=== PATIENT | female | born 1930 | race Caucasian/White ===

== ENCOUNTER 2016-12-14 12:37 | Emergency (ER) | payer MEDICARE, BC ==
[2016-12-14] MEDS ORDERED: ALBUTEROL SULFATE/IPRATROPIUM 3 ML NEBU IH ONE ×2 (15:45→16:25)
[2016-12-14 16:13] LABS: Hematocrit 37.8 % (37.0-47.0); Mean Cell Volume 90.4 fl (78-100); Mean Corpuscular Hemoglobin 28.7 pg (27-31); Mean Corpuscular Hgb Conc 31.7 g/dl (32-36); Neutrophil # 4.4 K/mm3 (1.3-6.0); Neutrophil % 72.2 % (42-75.0); Platelet Count 303 K/mm3 (150-450); Red Blood Count 4.18 M/mm3 (4.2-5.4); Red Cell Distribution Width 13.6 % (11.5-14.0); White Blood Count 6.1 K/mm3 (4.0-10.5)
[2016-12-14 16:41] LABS: Albumin * 3.2 gm/dl (3.4-5.0); Anion Gap 12.4 mmol/L (6.8-13.8); BUN/Creatinine Ratio 25.7 (9.0-21.6); Bilirubin, Total 0.3 mg/dL (0.0-1.1); Ca. Corrected For Albumin 10.1 mg/dL (8.4-10.2); Calcium * 9.8 mg/dL (7.9-10.9); Carbon Dioxide 30.7 mmol/L (24-32.6); Potassium 4.1 mmol/L (3.4-4.6); Total Protein 7.4 gm/dL (6.2-8.2)
[2016-12-14] MEDS ORDERED: METHYLPREDNISOLONE SOD SUCC/PF 40 MG/ML VIAL IM ONE (17:33)
--- NOTE | 2016-12-14 17:42 | ERNOTE ---
Medical Problem HPI - Narrative Date of Service: 12/14/16 - General Chief Complaint: Foreign Body Time Seen by Provider: 12/14/16 15:29 Source: patient Exam Limitations: no limitations - Immun/Allergies/Home Medications Immunizations: IMMUNIZATION HX History of Influenza Vaccine More Information Required Hx Pneumococcal Vaccination More Information Required Allergies/Adverse Reactions: Allergies lisinopril Allergy (Severe, Verified 12/14/16 12:52) throat swelling tramadol Allergy (Severe, Verified 12/14/16 12:52) throat swelling hydrochlorothiazide Allergy (Verified 12/14/16 12:52) Home Medications: HOME MEDICATIONS Alendronate Sodium 35 mg PO TH 11/08/12 [Last Taken 07/24/14] Atenolol [Tenormin] 25 mg PO DAILY 11/08/12 [Last Taken 08/24/15 07:00 25mg] Mirtazapine [Remeron] 15 mg PO HS 11/08/12 [Last Taken 08/23/15 19:00 7.5mg] DULoxetine HCL [Cymbalta] 60 mg PO DAILY #0 07/27/14 [Last Taken 08/24/15 07: 00 60mg] Aspirin [Aspirin Enteric Coated] 325 mg PO DAILY 11/17/16 [Last Taken Unknown] Fluticasone/Salmeterol [Advair 500-50 Diskus] 1 puff IH BID 11/17/16 [Last Taken Unknown] Loratadine [Claritin] 10 mg PO DAILY 11/17/16 [Last Taken Unknown] Losartan Potassium [Cozaar] 50 mg PO DAILY 11/17/16 [Last Taken Unknown] amLODIPine BESYLATE [Norvasc] 2.5 mg PO DAILY 11/17/16 [Last Taken Unknown] amLODIPine BESYLATE [Norvasc] 5 mg PO DAILY 11/17/16 [Last Taken Unknown] busPIRone HCL [Buspar] 5 mg PO BID 11/17/16 [Last Taken Unknown] traZODone HCL [Desyrel] 12.5 mg PO HS PRN 11/17/16 [Last Taken Unknown] Acetaminophen [Tylenol] 650 mg PO QID PRN #1 tablet 12/14/16 [Last Taken Unknown ] Albuterol Sulfate/Ipratropium [Duoneb 2.5-0.5MG/3ML Soln] 3 ml IH QID #1 nebu [Last Taken Unknown] Cefuroxime Axetil [Ceftin] 500 mg PO BID #30 tab 12/14/16 [Last Taken Unknown] Prednisone [Deltasone] 1.5 tab PO BID #42 tablet 12/14/16 [Last Taken Unknown] - History of Present History Narrative: For about a week, hasn't felt well. Aching all over. More of a cough, more SOB. No fever. Cough non productive. Didn't actually choke at lunch today. About three weeks ago was treated for lung infection. Also, tends to feel depressed when her lungs get worse, and she is having that problem now, as well. Timing: getting worse Severity: mild, moderate Modifying Factors - (Improves): Present: other - nothing Modifying Factors - (Worsens): Present: movement Review of Systems - Review of Systems Constitutional: Present: malaise EYE: Present: no symptoms reported ENT: Present: no symptoms reported Respiratory: Present: shortness of breath, cough Cardiology: Present: no symptoms reported Gastrointestinal/Abdominal: Present: no symptoms reported Genitourinary: Present: no symptoms reported Musculoskeletal: Present: muscle pain Neurological: Present: weakness Endocrine: Present: no symptoms reported Hematologic/Lymphatic: Present: no symptoms reported Psych: Present: no symptoms reported All Other Systems: All systems neg except as marked - Patient's Past Medical History Patient History - Medical: Anemia, Anxiety, Depression, Osteoporosis Patient History - Cardiac/Respiratory: Atrial Fibrillation, COPD, Home O2 Use Patient History - Cancer: No Hx of Cancer Patient History - Surgical Procedures: Appendectomy, Hysterectomy, T & A - Social History Living Situations: home Smoking Status: Former smoker Have you smoked in the past 12 months: No Do you dip or chew tobacco: No Alcohol Use: none Drug Use: none Physical Exam - Physical Exam Narrative: O2 dependent COPD General Appearance: Present: wd/wn, alert, no apparent distress Eye Exam: Normal inspection: bilateral, PERRL: bilateral, EOMI: bilateral Ears, Nose, Throat: Present: normal ENT inspection, hearing grossly normal Neck: Present: normal inspection Respiratory: Present: no respiratory distress, rhonchi, wheezing Cardiovascular/Chest: Present: regular rate, rhythm, no murmur Gastrointestinal/Abdominal: Present: normal bowel sounds, nontender, nondistended, soft, no organomegaly Back Exam: Present: normal inspection Extremity Exam: Present: normal inspection, no edema Neurological Exam: Present: alert, oriented, other - tends to be anxious Skin Exam: Present: normal color, warm/dry ED Progress - Results and Orders Patient's Lab Results:: I have reviewed the patient's lab results. - Vital Signs Patient's Vital Signs:: I have reviewed the patient's vital signs. Vital Signs: Vital Signs 12/14/16 12:49 Temperature 36.6 C Pulse Rate 82 Respiratory 14 Rate Blood Pressure 139/65 O2 Sat by Pulse 95 Oximetry - X-Ray X-Ray #1 X-Ray: chest Interpretation: Interp. by me - non acute. - Progress/Reassessment Chief Complaint: Foreign Body Departure - Departure Clinical Impression: COPD with exacerbation Disposition: Home self-care Condition: Good Instructions: Chronic Obstructive Pulmonary Disease Exacerbation, [id number] Additional Instructions: Follow up with your doctor sometime next week. Prescriptions: Acetaminophen [Tylenol] 650 mg PO QID PRN #1 tablet PRN Reason: Pain Albuterol Sulfate/Ipratropium [Duoneb 2.5-0.5MG/3ML Soln] 3 ml IH QID #1 nebu Cefuroxime Axetil [Ceftin] 500 mg PO BID #30 tab Prednisone [Deltasone] 1.5 tab PO BID #42 tablet
[2016-12-14] MEDS ORDERED: METHYLPREDNISOLONE SOD SUCC/PF 40 MG/ML VIAL ONE (17:47)
[2016-12-14 18:32] VITALS: BP 112/81
== END 2016-12-14 18:53 | disposition home or self-care (01) ==
LOC: ER 12:37
DX: J44.1 Chronic obstructive pulmonary disease with (acute) exacerbation (principal); Z87.891 Personal history of nicotine dependence; Z90.710 Acquired absence of both cervix and uterus

== ENCOUNTER 2017-01-01 18:14 | Observation (INO) | payer MEDICARE, BC ==
[2017-01-01 18:53] LABS: Hematocrit 34.5 % (37.0-47.0); Hemoglobin 10.6 gm/dL (12.5-16.0); Mean Cell Volume 92.5 fl (78-100); Mean Corpuscular Hemoglobin 28.4 pg (27-31); Mean Corpuscular Hgb Conc 30.7 g/dl (32-36); Mean Platelet Volume 9.8 fl (6.0-9.5); Neutrophil # 6.6 K/mm3 (1.3-6.0); Neutrophil % 80.4 % (42-75.0); Platelet Count 248 K/mm3 (150-450); Red Blood Count 3.73 M/mm3 (4.2-5.4); Red Cell Distribution Width 14.3 % (11.5-14.0); White Blood Count 8.2 K/mm3 (4.0-10.5)
[2017-01-01 19:24] LABS: Albumin * 2.7 gm/dl (3.4-5.0); Anion Gap 7.8 mmol/L (6.8-13.8); BUN/Creatinine Ratio 37.4 (9.0-21.6); Bilirubin, Total 0.3 mg/dL (0.0-1.1); Ca. Corrected For Albumin 9.4 mg/dL (8.4-10.2); Calcium * 8.7 mg/dL (7.9-10.9); Carbon Dioxide 35.5 mmol/L (24-32.6); Potassium 4.3 mmol/L (3.4-4.6); Total Protein 5.8 gm/dL (6.2-8.2)
[2017-01-01 19:26] LABS: Troponin I 0.018 ng/ml (0.00-0.10)
--- NOTE | 2017-01-01 20:25 | ERNOTE ---
Dyspnea - Date Date of Service: 01/01/17 - General Presenting Symptoms: shortness of breath Time Seen by Provider: 01/01/17 18:57 Source: patient Exam Limitations: clinical condition - Immun/Allergies/Home Medications Immunizations: IMMUNIZATION HX Immunizations Up to Date Yes History of Influenza Vaccine More Information Required Hx Pneumococcal Vaccination More Information Required Allergies/Adverse Reactions: Allergies lisinopril Allergy (Severe, Verified 01/01/17 18:27) throat swelling tramadol Allergy (Severe, Verified 01/01/17 18:27) throat swelling hydrochlorothiazide Allergy (Verified 12/14/16 12:52) Home Medications: HOME MEDICATIONS Alendronate Sodium 35 mg PO TH 11/08/12 [Last Taken 07/24/14] Atenolol [Tenormin] 25 mg PO DAILY 11/08/12 [Last Taken 08/24/15 07:00 25mg] Mirtazapine [Remeron] 15 mg PO HS 11/08/12 [Last Taken 08/23/15 19:00 7.5mg] DULoxetine HCL [Cymbalta] 60 mg PO DAILY #0 07/27/14 [Last Taken 08/24/15 07: 00 60mg] Aspirin [Aspirin Enteric Coated] 325 mg PO DAILY 11/17/16 [Last Taken Unknown] Fluticasone/Salmeterol [Advair 500-50 Diskus] 1 puff IH BID 11/17/16 [Last Taken Unknown] Loratadine [Claritin] 10 mg PO DAILY 11/17/16 [Last Taken Unknown] Losartan Potassium [Cozaar] 50 mg PO DAILY 11/17/16 [Last Taken Unknown] amLODIPine BESYLATE [Norvasc] 2.5 mg PO DAILY 11/17/16 [Last Taken Unknown] amLODIPine BESYLATE [Norvasc] 5 mg PO DAILY 11/17/16 [Last Taken Unknown] busPIRone HCL [Buspar] 5 mg PO BID 11/17/16 [Last Taken Unknown] traZODone HCL [Desyrel] 12.5 mg PO HS PRN 11/17/16 [Last Taken Unknown] Acetaminophen [Tylenol] 650 mg PO QID PRN #1 tablet 12/14/16 [Last Taken Unknown ] Albuterol Sulfate/Ipratropium [Duoneb 2.5-0.5MG/3ML Soln] 3 ml IH QID #1 nebu [Last Taken Unknown] Cefuroxime Axetil [Ceftin] 500 mg PO BID #30 tab 12/14/16 [Last Taken Unknown] Prednisone [Deltasone] 1.5 tab PO BID #42 tablet 12/14/16 [Last Taken Unknown] - History of Present Illness Narrative: Patient brought in by EMS for SOB. It is very difficult to get any history from her. She states she feels better. Family is here and I spoke with POA via phone. It is reported she was told she needed to be in hospice. She however is not yet in Hospice and there is some confusion regarding this. She denies any chest pain right now. She states she has SOB but it is better. History is difficult to obtain. Patient is DNP and has an ipost. 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 Denies: fever/chills Prior Treatment: Reports: recently seen Review of Systems - Narrative Narrative: Difficult to obtain d/t patient condition - Review of Systems All Other Systems: All systems neg except as marked - Patient's Past Medical History Patient History - Medical: Anemia, Anxiety, Depression, Osteoporosis Patient History - Cardiac/Respiratory: COPD Patient History - Cancer: No Hx of Cancer Patient History - Surgical Procedures: Appendectomy, Hysterectomy, T & A Patient History - Other: None - Social History Living Situations: home Abuse History: No History of abuse Psych History: Hx of Anxiety, Hx of Depression Alcohol Use: none Drug Use: none - Immunizations Immunizations Up to Date: Yes Hx Pneumococcal Vaccination: More Information Required to Determine History of Influenza Vaccine: More Information Required to Determine Physical Exam - Physical Exam General Appearance: Present: alert, other - Very mild tachypnea Eye Exam: Normal inspection: bilateral Ears, Nose, Throat: Present: normal ENT inspection Neck: Present: normal inspection Respiratory: Present: other - scattered wheezes throughtout. No active retractions. Mild tachypnea Cardiovascular/Chest: Present: regular rate, rhythm Gastrointestinal/Abdominal: Present: normal bowel sounds, nontender Extremity Exam: Present: other - no calf tendernesss Neurological Exam: Present: other - generalized weakness makes this exam difficult Skin Exam: Absent: cyanosis ED Progress - Results and Orders Patient's Lab Results:: I have reviewed the patient's lab results. - Vital Signs Patient's Vital Signs:: I have reviewed the patient's vital signs. Vital Signs: Vital Signs 01/01/17 01/01/17 01/01/17 18:16 19:10 19:23 Temperature 36.8 C 36.8 C Pulse Rate 84 84 78 Respiratory 24 H 18 Rate Blood Pressure 181/82 147/112 O2 Sat by Pulse 95 93 Oximetry - EKG EKG read: Interp. by me EKG Comments: NSR, rate 80. No STEMI. Non-specific ST/T wave changes. - Progress/Reassessment Chief Complaint: Dyspnea Progress Note-Subjective: 01/01/17 20:24 patient seen in ED by hospitalist and will be admitted. Departure Clinical Impression: SOB (shortness of breath), Generalized weakness, COPD (chronic obstructive pulmonary disease) - Departure Disposition: [facility] Referrals: Harsh Perry MD [Primary Care Provider] -
[2017-01-01] MEDS ORDERED: CODEINE PHOSPHATE/GUAIFENESIN 5 ML UDC PO PRN (20:45)
[2017-01-01] MEDS ORDERED: MORPHINE SULFATE 4 MG/ML SYRG IV PRN (20:45)
[2017-01-01] MEDS ORDERED: ATROPINE SULFATE 150 DROP BTL SL PRN (20:45)
[2017-01-01] MEDS ORDERED: ALBUTEROL SULFATE/IPRATROPIUM 3 ML NEBU IH PRN (20:45)
[2017-01-01] MEDS ORDERED: LORazepam 2 MG/ML DISP.SYRIN IV PRN (20:45)
[2017-01-01] MEDS ORDERED: ONDANSETRON HCL/PF 2 MG/ML VIAL IV PRN (20:45)
--- NOTE | 2017-01-01 20:56 | HP ---
Chief Complaint - Chief Complaint Date of Service: 01/01/17 Time of Service: 20:55 Chief Complaint: "SOB". Source of HPI- Pt; reliable, ER provider report, History of Present Illness: Ms. Mcnally is a 86-yr-old WF pt of Dr. Perry who is a [facility] resident at the [facility]. She has known severe end stage COPD, is O2 dependent and has deteriorated further despite treatment with COPD maintenance medications and nebulizer treatments. According to [place] records, it appears that referral had been made for patient to transition to hospice care/facility at the [facility] on 12/26/16. However, the admission was declined on 12/29/16 with a reason stating that end-stage COPD was not enough to meet the admitting criteria to Hospice facility. More documentation was needed in order qualify the pt to be admitted at the Hospice facility, but the [facility] have not received the required paperwork from the PCP. Tonight, the patient got extremely SOB and no intervention at the [facility] could help the pt overcome her dyspnea. So she was sent to the [facility] ER via the ambulance. During evaluation at the ER, she remained SOB. During physical examination, she is noted to have one word dyspnea. ERP spoke to pt's daughter Kimberlee who is POA about goals of care and she was under the impresion the her mother would be transfering to hospice facility, however, the plans had not been finalized. The patient could not be transfered back to the [facility] nor [facility] due to extreme dyspnea & without official hospice care arrangements. I spoke to daughter via the phone about the treatment plan with the pt due to yaakov's respiratory distress event. Her wishes were for the patient to be kept comfortable with medications to alleviate increased respiratory effort and anxiety. So will admit pt for comfort care measures and coordinate efforts to transfer pt to hospice tomorrow. - Patient's Past Medical History Patient History - Medical: Anemia, Anxiety, Depression, Osteoporosis Patient History - Cardiac/Respiratory: COPD Patient History - Cancer: No Hx of Cancer Patient History - Surgical Procedures: Appendectomy, Hysterectomy, T & A Patient History - Other: None - Family History Father Family History - Medical: , Other - Athritis, Dementia Mother Family History - Medical: Family History - Cardiac/Respiratory: CVA/Stroke Family History - Cancer: Cervical - Social History Living Situations: home Abuse History: No History of abuse Psych History: Hx of Anxiety, Hx of Depression Alcohol Use: none Drug Use: none - Immunizations Immunizations Up to Date: Yes Hx Pneumococcal Vaccination: Yes History of Influenza Vaccine: Yes Review Of Systems (GEN) - Review of Systems Additional Comments: ROS unobtainable due to pt's AMS. Immunizations: IMMUNIZATION HX Immunizations Up to Date Yes History of Influenza Vaccine More Information Required Hx Pneumococcal Vaccination More Information Required Allergies/Adverse Reactions: Allergies Allergy/AdvReac Type Severity Reaction Status Date / Time lisinopril Allergy Severe throat Verified 01/01/17 18:27 swelling tramadol Allergy Severe throat Verified 01/01/17 18:27 swelling hydrochlorothiazide Allergy Verified 12/14/16 12:52 prednisone Allergy Verified 01/01/17 23:10 Home Medications: HOME MEDICATIONS Alendronate Sodium 35 mg PO TH 11/08/12 [Last Taken 07/24/14] Atenolol [Tenormin] 25 mg PO DAILY 11/08/12 [Last Taken 08/24/15 07:00 25mg] Mirtazapine [Remeron] 15 mg PO HS 11/08/12 [Last Taken 08/23/15 19:00 7.5mg] DULoxetine HCL [Cymbalta] 60 mg PO DAILY #0 07/27/14 [Last Taken 08/24/15 07: 00 60mg] Aspirin [Aspirin Enteric Coated] 325 mg PO DAILY 11/17/16 [Last Taken Unknown] Fluticasone/Salmeterol [Advair 500-50 Diskus] 1 puff IH BID 11/17/16 [Last Taken Unknown] Loratadine [Claritin] 10 mg PO DAILY 11/17/16 [Last Taken Unknown] Losartan Potassium [Cozaar] 50 mg PO DAILY 11/17/16 [Last Taken Unknown] amLODIPine BESYLATE [Norvasc] 2.5 mg PO DAILY 11/17/16 [Last Taken Unknown] amLODIPine BESYLATE [Norvasc] 5 mg PO DAILY 11/17/16 [Last Taken Unknown] busPIRone HCL [Buspar] 5 mg PO BID 11/17/16 [Last Taken Unknown] traZODone HCL [Desyrel] 12.5 mg PO HS PRN 11/17/16 [Last Taken Unknown] Acetaminophen [Tylenol] 650 mg PO QID PRN #1 tablet 12/14/16 [Last Taken Unknown ] Albuterol Sulfate/Ipratropium [Duoneb 2.5-0.5MG/3ML Soln] 3 ml IH QID #1 nebu [Last Taken Unknown] Cefuroxime Axetil [Ceftin] 500 mg PO BID #30 tab 12/14/16 [Last Taken Unknown] Prednisone [Deltasone] 1.5 tab PO BID #42 tablet 12/14/16 [Last Taken Unknown] Exam - Exam Vital Signs: Vital Signs - Last Taken Temp 36.8 C 01/01/17 19:23 Pulse 78 01/01/17 19:23 Resp 18 01/01/17 19:23 BP 147/112 01/01/17 19:23 Pulse Ox 93 01/01/17 19:23 Constitutional: Present: Alert, Moderate distress, Other - Very anxious, fidgety., Elderly ENT Exam: Present: hard of hearing. Absent: nasal congestion, nasal drainage Eye Exam: bilateral eye: normal inspection, PERRL Neck: Present: full range of motion, supple, normal inspection Back Exam: Present: normal inspection Respiratory: Present: accessory muscle use, wheezing, expiration (prolonged), other - One word dyspnea. Cardiovascular/Chest: Present: regular rate, rhythm, no edema, no murmur Abdomen: Present: Normal bowel sounds, soft, nontender /Rectal: Present: Exam deferred Extremity: Present: normal range of motion, non-tender, normal inspection Skin Exam: Present: warm/dry, no cyanosis Lymphatic: Present: no adenopathy Neurologic: Present: alert, oriented x 3 Appearance: Present: impaired insight, impaired recent memory, impaired remote memory Eye contact: Present: cooperative, good eye contact, other Thoughts: Present: no apparent hallucination Diagnostic Studies: Laboratory Results WBC 8.2 K/mm3 (4.0-10.5) 01/01/17 18:40 RBC 3.73 M/mm3 (4.2-5.4) L 01/01/17 18:40 Hgb 10.6 gm/dL (12.5-16.0) L 01/01/17 18:40 Hct 34.5 % (37.0-47.0) L 01/01/17 18:40 MCV 92.5 fl (78-100) 01/01/17 18:40 MCH 28.4 pg (27-31) 01/01/17 18:40 MCHC 30.7 g/dl (32-36) L 01/01/17 18:40 RDW 14.3 % (11.5-14.0) H 01/01/17 18:40 Plt Count 248 K/mm3 (150-450) 01/01/17 18:40 MPV 9.8 fl (6.0-9.5) H 01/01/17 18:40 Immature Gran % (Auto) 0.20 % (0.001-0.429) 01/01/17 18:40 Immature Gran # (Auto) 0.02 K/mm3 (0.000-0.0310) 01/01/17 18:40 Neutrophils % 80.4 % (42-75.0) H 01/01/17 18:40 Lymphocytes % 11.3 % (20-51) L 01/01/17 18:40 Monocytes % 7.5 % (0.0-9) 01/01/17 18:40 Eosinophils % 0.2 % (0.0-3.0) 01/01/17 18:40 Basophils % 0.4 % (0.0-1.0) 01/01/17 18:40 Nucleated RBC % 0.0 k/mm3 (0-1) 01/01/17 18:40 Neutrophils # 6.6 K/mm3 (1.3-6.0) H 01/01/17 18:40 Lymphocytes # 0.9 k/mm3 (1.5-3.5) L 01/01/17 18:40 Monocytes # 0.6 k/mm3 (0.0-1.0) 01/01/17 18:40 Eosinophils # 0.0 k/mm3 (0.0-0.7) 01/01/17 18:40 Absolute Basophils 0.0 k/mm3 (0.0-0.1) 01/01/17 18:40 Sodium 146 mmol/L (132-142) H 01/01/17 18:40 Plasma Sodium 146 mmol/L (130-142) H 01/01/17 18:40 Potassium 4.3 mmol/L (3.4-4.6) 01/01/17 18:40 Chloride 107 mmol/L (97-106) H 01/01/17 18:40 Carbon Dioxide 35.5 mmol/L (24-32.6) H 01/01/17 18:40 Anion Gap 7.8 mmol/L (6.8-13.8) 01/01/17 18:40 BUN 34 mg/dL (3-23) H 01/01/17 18:40 Creatinine 0.91 mg/dL (0.4-1.4) 01/01/17 18:40 Est GFR (Non-Af Amer) 62 mL/min (60-130) 01/01/17 18:40 BUN/Creatinine Ratio 37.4 (9.0-21.6) H 01/01/17 18:40 Random Glucose 107 mg/dL (70-110) 01/01/17 18:40 Lactic Acid, Venous 0.7 mmol/L (0.4-2.0) 01/01/17 18:40 Calcium 8.7 mg/dL (7.9-10.9) 01/01/17 18:40 Calcium Adj for Albumin 9.4 mg/dL (8.4-10.2) 01/01/17 18:40 Total Bilirubin 0.3 mg/dL (0.0-1.1) 01/01/17 18:40 AST 18 U/L (0-48) 01/01/17 18:40 ALT 21 U/L (19-67) 01/01/17 18:40 Alkaline Phosphatase 85 U/L (50-170) 01/01/17 18:40 Troponin I 0.018 ng/ml (0.00-0.10) 01/01/17 18:40 B-Natriuretic Peptide 1876 pg/mL (5-550) H 01/01/17 18:40 Total Protein 5.8 gm/dL (6.2-8.2) L 01/01/17 18:40 Albumin 2.7 gm/dl (3.4-5.0) L 01/01/17 18:40 Assessment/Plan - Assessment/Plan (1) Comfort measures only status Assessment: As stated in the HPI, will admit pt and initiate comfort cares measures as in agreement with the next of kin & DEUCE Mohan. Will have PCP finalize the required documentation in order to transition care to a hospice facility. Problem: Acute (2) End stage COPD Assessment: Utilize prn medications to alleviate respiratory distress and Anxiety. Problem: Acute
[2017-01-02] MEDS ORDERED: MORPHINE SULFATE 2 MG/ML DISP.SYRIN IV PRN (06:37)
[2017-01-02] MEDS ORDERED: ONDANSETRON 4 MG TAB.RAPDIS PO PRN (09:15)
[2017-01-02] MEDS: MORPHINE SULFATE 10 MG/0.5 ML SYRINGE PO SCH ×4 (10:06→16:04)
[2017-01-02] MEDS: LORazepam 1 MG TABLET PO SCH ×3 (10:06→16:05)
[2017-01-02 10:18] VITALS: BP 179/79
--- NOTE | 2017-01-02 16:02 | DS ---
(1) End stage COPD Diagnosis(s): on 2-3L O2 Problem: Chronic (2) Comfort measures only status Diagnosis(s): d/mony - Hospice. Problem: Acute (3) Atrial fibrillation Problem: Chronic (4) Hypertension Problem: Acute Description of Stay: DATE OF ADMISSION: 01/01/2017. DATE OF DISCHARGE: 01/02/2017. HOSPITAL COURSE: Patient is a 86-year-old WF with a history of end-stage COPD on 2 L of O2, BMI 17.5, HTN, anxiety/depression who had difficulty in breathing in spite of being on maximal therapy for COPD. She was admitted for shortness of breath with the intent of going into hospice the next day. Family had a meeting with hospice and all the medications were discontinued. Patient was discharged on morphine, lorazepam and atropine as needed. Procedures Performed: none Discharge Disposition: [place] self care - [facility]- [facility] Disposition: Home self-care Condition: Poor Discharge Diet: Other - food as tolerated. Referrals: Harsh Perry MD [Primary Care Provider] - Additional Patient Instructions (free text): [facility] [place] [facility]. Prescriptions (Any new or edited meds): Atropine Sulfate [Atropine 1% Ophthalmic Solution] 1 drop SL QID PRN #15 ml PRN Reason: Secretions Lorazepam 2 mg PO Q4H #50 ml Morphine Sulfate [Morphine Sulfate Conc. Oral Solution] 20 mg PO Q4H #30 ml Complete Home Medications List: Complete Home Medication List: Albuterol Sulfate/Ipratropium [Duoneb 2.5-0.5MG/3ML Soln] 3 ml IH QID #1 nebu Atropine Sulfate [Atropine 1% Ophthalmic Solution] 1 drop SL QID PRN #15 ml 09/08 Lorazepam 2 mg PO Q4H #50 ml 01/02/17 Morphine Sulfate [Morphine Sulfate Conc. Oral Solution] 20 mg PO Q4H #30 ml 09/08
== END 2017-01-02 17:35 | disposition hospice, home (50) ==
LOC: ER 18:14 → MS 20:21
PROVIDERS: ADMIT Nurse Practitioner; ATTEND Internal Medicine
DX: J44.1 Chronic obstructive pulmonary disease with (acute) exacerbation (principal); I48.2 Chronic atrial fibrillation; I10 Essential (primary) hypertension; F41.8 Other specified anxiety disorders; M81.0 Age-related osteoporosis without current pathological fracture
CPT/HCPCS: 36415; 71010; 80053; 83605; 83880; 84484; 85025; 87040; 87081; 93005; 94640; 94760; 99284; G0378